=== PATIENT | male | born 1995 | race African-American/Black ===

== ENCOUNTER 2019-06-29 19:46 | Emergency (ER) | payer OTHER ==
[~2019-06-29] VITALS: Ht 182.9 cm; Wt 95.3 kg
[2019-06-29] MEDS ORDERED: NOHOMEMEDICATIONS (19:52)
[2019-06-29] MEDS ORDERED: PREDNISONE 20 M20 MG PO (20:04)
[2019-06-29 20:10] VITALS: BP 144/70
== END 2019-06-29 20:13 | disposition home or self-care (01) ==
LOC: ER 19:46
DX: L23.9 Allergic contact dermatitis, unspecified cause (principal); H57.89 Other specified disorders of eye and adnexa; F17.210 Nicotine dependence, cigarettes, uncomplicated

== ENCOUNTER 2020-04-09 04:09 | Emergency (ER) | payer OTHER ==
[~2020-04-09] VITALS: Ht 182.9 cm; Wt 99.8 kg
[~2020-04-09 04:09] MED LIST: NOHOMEMEDICATIONS; PREDNISONE 20 M20 MG PO
[2020-04-09] MEDS ORDERED: KEFLEX500 M1 PO (04:55)
[2020-04-09 05:26] VITALS: BP 148/78
== END 2020-04-09 05:30 | disposition home or self-care (01) ==
LOC: ER 04:09
DX: R59.1 Generalized enlarged lymph nodes (principal); T69.8XXA Other specified effects of reduced temperature, initial encounter; Z87.891 Personal history of nicotine dependence; Z79.899 Other long term (current) drug therapy; Z20.828 Contact with and (suspected) exposure to other viral communicable diseases; X58.XXXA Exposure to other specified factors, initial encounter; Y93.89 Activity, other specified; Y92.89 Other specified places as the place of occurrence of the external cause; Y99.8 Other external cause status